=== PATIENT | male | born 1990 | race Caucasian/White ===

== ENCOUNTER 2019-02-06 08:58 | Emergency (ER) | payer MEDICAID ==
[~2019-02-06] VITALS: Ht 185.4 cm; Wt 65.8 kg
[2019-02-06] MEDS ORDERED: ketorolac trometh inj. 60 MG/2 ML VIAL IM ONE (09:25)
[2019-02-06] MEDS ORDERED: HYDROcodone/acetaminophen 7.5MG/325MG per 15ml UD CUP PO ONE (09:25)
--- NOTE | 2019-02-06 09:34 | NUR ---
PATIENT TO CT.
[2019-02-06] MEDS ORDERED: amox tr/clav. pot 400mg/5ml 100ml suspension PO STA (10:04)
[2019-02-06 10:48] VITALS: BP 132/72
== END 2019-02-06 10:49 | disposition short-term general hospital (02) ==
LOC: ER 08:59
DX: S02.69XB Fracture of mandible of other specified site, initial encounter for open fracture (principal); F17.210 Nicotine dependence, cigarettes, uncomplicated; W50.0XXA Accidental hit or strike by another person, initial encounter; Y93.89 Activity, other specified; Y92.89 Other specified places as the place of occurrence of the external cause; Y99.9 Unspecified external cause status
CPT/HCPCS: 70486; 96372; 99285; J1885